=== PATIENT | male | born 1950 | race Caucasian/White ===

== ENCOUNTER 2021-08-28 09:56 | Inpatient (IN) ==
[2021-08-28 10:02] VITALS: BMI 30.7
--- NOTE | 2021-08-28 10:06 | DR.SOBA ---
HPI Time Seen Time Seen by Provider: 08/28/21 10:06 Primary Care Physician Primary Care Physician: ZAK TYLER HPI Comment HPI Comment: PATIENT IS 70YR OLD MALE IN ER WITH INCREASING SOB AND INCREASING WEAKNESS TIMES 2 WEEKS. TESTED NEGATIVE FOR COVID 19 VIRUS TIMES 3. TAKEN ANTIBIOTIC TREATED WITH STERIOD WITHOUT IMPROVEMENT. DENEIS FEVER. Complaints Chief Complaint Doctors Comments: INCREASING SOB AND WEAKNESS TIMES 2 WEEKS. Chief Complaint:: PT C/O SOB & GENERALIZED WEAKNESS X2 WEEKS. PT STATES HE HAS BEEN GOING TO PMD FOR SAME S/S GIVEN ANTIBIOTICS, STEROIDS, HAVE TESTED NEGATIVE X3 FOR COVID BUT STILL NO BETTER. COVID-19 Coronavirus risk:travel/contact w/high risk person: No Has patient experienced Coronavirus symptoms: Yes Coronavirus symptoms experienced: Shortness of Breath Reviewed Nurses Notes Reviewed: Yes Source History Provided: Patient Mode of Arrival Mode of Arrival: Ambulatory Timing Onset of Chief Complaint: 08/14/21 Duration Duration: Weeks Context Onset:: At Rest PE Risk Factors:: None History of:: None Currently on:: Neither Prehospital Care:: None Modifying Factors Worsens:: Exertion Improves:: Rest and Sitting Up Associated Signs and Symptoms Associated Signs and Symptoms: Cough and Chest Pain (PLEURITIC.) If Chest Pain Quality: Pleuritic Location: Substernal If Cough Cough: Nonproductive PMH PMH Past Medical History: No Past Surgical History: Yes Surgical History: Other Family History History of Family Medical Conditions: Yes Family Medical History: VA and Coronary Artery Disease Travel Risk Coronavirus risk:travel/contact w/high risk person: No Has patient experienced Coronavirus symptoms: Yes Coronavirus symptoms experienced: Shortness of Breath Infectious screening Have you traveled outside the country in the last 6 months?: No Isolation: Droplet ROS Review of Systems Constitutional: See HPI, Weakness and Fatigue; negative Fever Eyes: No Symptoms Reported and See HPI ENTM: See HPI, Nose Discharge and Nose Congestion Respiratoy: See HPI, Non-Productive Cough and Short of Breath; negative Wheezing Cardiovascular: No Symptoms Reported, See HPI and Chest Pain (PLEURITIS CHEST PAIN.) Gastrointestinal/Abdominal: No Symptoms Reported and See HPI; negative Abdominal Pain, Diarrhea and Vomiting Genitourinary: No Symptoms Reported and See HPI; negative Dysuria Neurological: See HPI, Headache and Weakness; negative Dizziness Musculoskeletal: See HPI and Back Pain; negative Muscle Pain Integumentary: No Symptoms Reported and See HPI; negative Rash and Juandice Hematologic/Lymphatic: No Symptoms Reported and See HPI; negative Easy Bruising Endocrine: No Symptoms Reported and See HPI; negative Increased Thirst and Increased Urine Psychiatric: No Symptoms Reported and See HPI All Other Systems: Reviewed and Negative PE Vital Signs Vitals: Temperature 98.0 F Pulse Rate 65 Respiratory Rate 17 Blood Pressure [Left Arm] 121/62 Blood Pressure 134/78 O2 Sat by Pulse Oximetry 96 General Limitations: No Limitations General Appearance: Alert and In Distress Head Head Exam: Normal Inspection Eyes Eye exam: Normal Appearance; negative Scleral Icterus and Conjunctival Injection ENT ENT Exam: Normal Exam, Normal Oropharynx, Normal External Ear Exam and TM's N ormal Bilaterally Neck Neck Exam: Normal Inspection and Trachea Midline; negative Tenderness Chest Chest Inspection: Normal Inspection and Symmetric Chest Wall Rise; negative Tenderness Respiratory Respiratory Exam: Normal Lung Sounds Bilat; negative Accessory Muscle Use, Chest Wall Tenderness and Respiratory Distress Respiratory Exam: Bilateral: Rhonchi and Lower: Rhonchi Cardiovascular Cardiovascular Exam: Regular Rate, Normal Rhythm and Normal Heart Sounds; negative Systolic Murmur and Diastolic Murmur Abdominal Exam Abdominal Exam: Normal Inspection, Normal Bowel Sounds and Soft; negative Tenderness Extremities Extremities Exam: Normal Inspection and Normal Capillary Refill Back Back Exam: Normal Inspection; negative (R) CVA Tenderness and (L) CVA Tenderness Neurologic Neurological Exam: Alert and Oriented X3; negative Motor Sensory Deficit Psychiatric Psychiatric Exam: Normal Affect and Normal Mood Skin Skin Exam: Warm, Dry, Intact and Normal Color MDM Differential Diagnosis Differential Diagnosis: Bronchitis, Mycardial Infarction, Pneumonia, Pneumothorax, Respiratory Insufficiency, Sinusitis and URI COURSE Treatment Treatment: SEE ORDERS. Education/Counseling Education/Counseling: Patient Educated On: Diagnosis and Needs for Follow Up ROR Labs Reviewed Laboratory Results Reviewed?: Yes Result Diagrams: 08/30/21 04:14 08/30/21 04:14 Laboratory: WBC 7.2 X10^3/uL (3.6-10.0) 08/28/21 10:32 RBC 5.08 X10^6/uL (4.7-6.0) 08/28/21 10:32 Hgb 14.6 g/dL (13.5-18.0) 08/28/21 10:32 Hct 42.4 % (42.0-54.0) 08/28/21 10:32 MCV 83.6 fL (80.0-100.0) 08/28/21 10:32 MCH 28.9 pg (27.0-34.0) 08/28/21 10:32 MCHC 34.5 g/dL (33.0-35.0) 08/28/21 10:32 RDW 13.7 % (11.6-16.5) 08/28/21 10:32 Plt Count 311 X10^3/uL (150.0-450.0) 08/28/21 10:32 MPV 6.4 fL (7.4-11.0) L 08/28/21 10:32 Neut % (Auto) 73.2 % (42.0-75.0) 08/28/21 10:32 Lymph % (Auto) 14.5 % (21.0-51.0) L 08/28/21 10:32 [place] % (Auto) 10.7 % (0.0-13.0) 08/28/21 10:32 Eos % (Auto) 1.2 % (0.9-2.9) 08/28/21 10:32 Baso % (Auto) 0.4 % (0.2-1.0) 08/28/21 10:32 Neut # (Auto) 5.3 x10^3/uL (2.2-4.8) H 08/28/21 10:32 Lymph # (Auto) 1.0 X10^3/uL (1.3-2.9) L 08/28/21 10:32 [place] # (Auto) 0.8 x10^3/uL (0.3-0.8) 08/28/21 10:32 Eos # (Auto) 0.1 x10^3/uL (0.0-0.2) 08/28/21 10:32 Baso # (Auto) 0.0 X10^3/uL (0.0-0.1) 08/28/21 10:32 Absolute Nucleated RBC 0.1 /100WBC 08/28/21 10:32 D-Dimer 1.08 ug/ml (0.0-0.57) H* 08/28/21 10:32 Sample Site Rbra 08/28/21 10:07 ABG pH 7.490 (7.35-7.45) H 08/28/21 10:07 ABG pCO2 28.0 mmHg (35.0-45.0) L 08/28/21 10:07 ABG pO2 56.0 mmHg (80.0-100.0) L 08/28/21 10:07 ABG HCO3 21.3 mmol/L (22-26) L 08/28/21 10:07 ABG O2 Saturation 91.0 % (90-100) 08/28/21 10:07 ABG Base Excess -1.0 mmol/L (-2.0-2.0) 08/28/21 10:07 Clem Test N/a 08/28/21 10:07 A-a Gradient 59.0 mmHg 08/28/21 10:07 FiO2 21.0 08/28/21 10:07 Blood Gas Comments Pt [facility]in well elj 08/28/21 10:07 Sodium 134 mmol/L (136-145) L 08/28/21 10:32 Corrected Sodium TNP 08/28/21 10:32 Potassium 3.8 mmol/L (3.5-5.1) 08/28/21 10:32 Chloride 99 mmol/L (98-107) 08/28/21 10:32 Carbon Dioxide 21.5 mmol/L (21-32) 08/28/21 10:32 BUN 20 mg/dL (7-18) H 08/28/21 10:32 Creatinine 1.14 mg/dL (0.70-1.30) 08/28/21 10:32 Est GFR (MDRD) Af Amer > 60 (>60) 08/28/21 10:32 Est GFR (MDRD) Non-Af > 60 (>60) 08/28/21 10:32 Glucose 101 mg/dL (65-99) H 08/28/21 10:32 Calcium 9.3 mg/dL (8.5-10.1) 08/28/21 10:32 Creatine Kinase 76 Units/L (39-308) 08/28/21 10:32 CK-MB (CK-2) 1.0 ng/mL (0-4.0) 08/28/21 10:32 CK/CKMB % Calc 1.3 % (<4) 08/28/21 10:32 Troponin I High Sens 10.4 ng/L (4.0-60.0) 08/28/21 10:32 B-Natriuretic Peptide 26.3 pg/mL (0-79) 08/28/21 10:32 Influenza Type A Ag Negative-presumptive (NEGATIVE) 08/28/21 12:08 Influenza Type B Ag Negative-presumptive (NEGATIVE) 08/28/21 12:08 SARS CoV-2 RNA Rapid LEAH Positive (NEGATIVE) A 08/28/21 12:08 XRAY XRAY Interpreted by: Radiologist (REPORT NOTED AND DISCUSSED WITH PATIENT..) and Self EKG Rate: 83 [place]: LAD Rhythm: NSR Block: None Hypertrophy: None ST: Old, Ant and Infarct Opioid Opioid Risk Tool Age (Jose box if 16-45): No History of Preadolescent Sexual Abuse: No Total: 0 Total Score Risk Category: Low Risk Copyright: Pravin CLAYTON predicting aberrant behaviors Diagnosis Discharge Problem: COVID-19 virus infection, Respiratory distress Pneumonia Qualifiers: Pneumonia type: due to unspecified organism Laterality: bilateral Lung location: lower lobe of lung Qualified Code(s): J18.9 - Pneumonia, unspecified organism Instructions Instructions: How to Use an Incentive Spirometer Hypoxia Prone Position Therapy How to Wear and Take Off Your Mask - [facility] (10/27/2020) 10 Things You Can Do to Manage Your COVID-19 Symptoms at Home - [facility] (01/27/2020) Shortness of Breath, Adult COVID-19 How to Use a Nebulizer, Adult COVID-19: Quarantine vs. Isolation - [facility] (07/14/2020) You've Been Prescribed an Antibiotic in the Hospital for an Infection - [facility] Managing Your Hypertension Forms: Excuse From Work or School Precautions for COVID19 [facility] Social Distancing
[2021-08-28 10:13] LABS: ABG HCO3 21.3 mmol/L (22-26)
--- NOTE | 2021-08-28 10:38 | RAD ---
HISTORYPT C/O SOB & GENERALIZED WEAKNESS X2 WEEKS. PT STATES HE HAS BEEN GOING TO PMD FOR SAME S/S GIVEN ANTIBIOTICS, STEROIDS, HAVE TESTED NEGATIVE X3 FOR COVID BUT STILL NO BETTER.STUDYCHEST, 1 [id number]/27/2022.TECHNIQUEAP view of the chestFINDINGSCardiac and mediastinal contours are within normal limits. Interval development of bilateral mid to lower lung hazy and interstitial pulmonary opacities. No definite pleural effusion or pneumothorax.IMPRESSIONBilateral hazy and interstitial pulmonary opacities in the mid to lower lungs appear worse than prior and may represent atypical pneumonia. Recommend follow-up to document resolution.Electronically signed by: Ariel Hoffman (Aug 28, 2021 10:36:38)
[2021-08-28] MEDS ORDERED: SOLU-Medrol 125 MG VIAL IVP ONE (10:41)
[2021-08-28 10:48] LABS: BASOPHILS % (AUTO) 0.4 % (0.2-1.0); EOSINOPHILS # (AUTO) 0.1 x10^3/uL (0.0-0.2); EOSINOPHILS % (AUTO) 1.2 % (0.9-2.9); HEMATOCRIT 42.4 % (42.0-54.0); HEMOGLOBIN 14.6 g/dL (13.5-18.0); LYMPHOCYTES % (AUTO) 14.5 % (21.0-51.0); MEAN CORPUSCULAR HEMOGLOBIN 28.9 pg (27.0-34.0); MEAN CORPUSCULAR HGB CONC 34.5 g/dL (33.0-35.0); MEAN CORPUSCULAR VOLUME 83.6 fL (80.0-100.0); MEAN PLATELET VOLUME 6.4 fL (7.4-11.0); MONOCYTES # (AUTO) 0.8 x10^3/uL (0.3-0.8); MONOCYTES % (AUTO) 10.7 % (0.0-13.0); NEUTROPHILS # (AUTO) 5.3 x10^3/uL (2.2-4.8); NEUTROPHILS % (AUTO) 73.2 % (42.0-75.0); RED BLOOD COUNT 5.08 X10^6/uL (4.7-6.0); RED CELL DISTRIBUTION WIDTH 13.7 % (11.6-16.5); WHITE BLOOD COUNT 7.2 X10^3/uL (3.6-10.0)
[2021-08-28] MEDS ORDERED: SOLU-Medrol 125 MG VIAL ONE (10:51)
[2021-08-28 11:09] LABS: BLOOD UREA NITROGEN 20 mg/dL (7-18); CALCIUM 9.3 mg/dL (8.5-10.1); CARBON DIOXIDE 21.5 mmol/L (21-32); CHLORIDE 99 mmol/L (98-107); CREATININE 1.14 mg/dL (0.70-1.30); SODIUM 134 mmol/L (136-145); eGFR NON BLACK RACES > 60 (>60)
[2021-08-28 11:27] LABS: CKMB % 1.3 % (<4); CREATINE KINASE 76 Units/L (39-308)
[2021-08-28] MEDS ORDERED: NS 1,000 ML IV 1,000 ML ONE (12:06)
[2021-08-28] MEDS ORDERED: ZOSYN VIAL 3.375 GRAMS 3.375 G in NS 100 ML IV + SPIKE MINIBAG* 100 ML IV ONE (12:20)
[2021-08-28] MEDS ORDERED: ZOSYN VIAL 3.375 GRAMS IV ONE (12:39)
[2021-08-28] MEDS ORDERED: NS 100 ML IV + SPIKE MINIBAG* 100 ML IV ONE (12:40)
[2021-08-28] MEDS ORDERED: NS 1,000 ML IV 1,000 ML IV SCH (13:00)
[2021-08-28] MEDS ORDERED: REMDESIVIR 200 MG in NS 250 ML IV 250 ML IV ONE (17:14)
[2021-08-28] MEDS: PULMICORT NEB TX 0.5 MG NEB SCH (20:50)
[2021-08-28] MEDS: BROVANA IN SCH (20:50)
[2021-08-28] MEDS ORDERED: ASCORBIC ACID INJ MULTI-DOSE VIAL 1,500 MG in NS 100 ML IV 100 ML IV SCH (21:00)
[2021-08-28] MEDS ORDERED: LOVENOX INJ 30 MG SYR SC SCH (21:00)
[2021-08-28] MEDS: ASCORBIC ACID INJ MULTI-DOSE VIAL 1,500 MG in NS 50 ML IV 50 ML IV SCH (21:15)
[2021-08-28] MEDS: ZOSYN VIAL 3.375 GRAMS 3.375 G in NS 100 ML IV + SPIKE MINIBAG* 100 ML IV SCH (21:15)
[2021-08-28] MEDS: PEPCID TAB 40 MG PO SCH (21:15)
[2021-08-28] MEDS: VIBRAMYCIN PO SCH (21:15)
[2021-08-28] MEDS: ZINC SULFATE PO SCH (21:15)
[2021-08-28] MEDS: SOLU-Medrol 40 MG VIAL IVP SCH (21:15)
[2021-08-28] MEDS: LOVENOX INJ 80 MG SYR SC SCH (22:05)
[2021-08-28] MEDS: NS 1,000 ML IV 1,000 ML IV SCH (22:05)
[2021-08-29] MEDS: ASCORBIC ACID INJ MULTI-DOSE VIAL 1,500 MG in NS 50 ML IV 50 ML IV SCH ×2 (03:55→08:00)
[2021-08-29] MEDS: SOLU-Medrol 40 MG VIAL IVP SCH ×3 (05:18→21:02)
[2021-08-29] MEDS: ZOSYN VIAL 3.375 GRAMS 3.375 G in NS 100 ML IV + SPIKE MINIBAG* 100 ML IV SCH (05:18)
[2021-08-29 05:34] LABS: ABG ALLEN TEST POSS; ABG BASE EXCESS -3.5 mmol/L (-2.0-2.0); ABG HCO3 20.3 mmol/L (22-26)
[2021-08-29 06:11] LABS: BASOPHILS % (AUTO) 0.2 % (0.2-1.0); EOSINOPHILS % (AUTO) 0.1 % (0.9-2.9); HEMATOCRIT 39.8 % (42.0-54.0); HEMOGLOBIN 13.7 g/dL (13.5-18.0); LYMPHOCYTES # (AUTO) 0.9 X10^3/uL (1.3-2.9); LYMPHOCYTES % (AUTO) 11.3 % (21.0-51.0); MEAN CORPUSCULAR HEMOGLOBIN 29.1 pg (27.0-34.0); MEAN CORPUSCULAR HGB CONC 34.3 g/dL (33.0-35.0); MEAN CORPUSCULAR VOLUME 84.6 fL (80.0-100.0); MEAN PLATELET VOLUME 6.6 fL (7.4-11.0); MONOCYTES # (AUTO) 0.4 x10^3/uL (0.3-0.8); MONOCYTES % (AUTO) 5.3 % (0.0-13.0); NEUTROPHILS # (AUTO) 6.5 x10^3/uL (2.2-4.8); NEUTROPHILS % (AUTO) 83.1 % (42.0-75.0); RED CELL DISTRIBUTION WIDTH 13.6 % (11.6-16.5); WHITE BLOOD COUNT 7.8 X10^3/uL (3.6-10.0)
--- NOTE | 2021-08-29 06:17 | RAD ---
HISTORYSOBSTUDYCHEST, 1 VIEWCOMPARISONOne day prior.TECHNIQUEAP view of the chestFINDINGSCardiac and mediastinal contours are within normal limits. Similar appearance of bilateral mid to lower lung hazy and interstitial pulmonary opacities. No definite pleural effusion or pneumothorax.IMPRESSIONNo significant change.Electronically signed by: Ariel Hoffman (Aug 29, 2021 06:16:02)
[2021-08-29 06:18] LABS: BLOOD UREA NITROGEN 19 mg/dL (7-18); CALCIUM 8.8 mg/dL (8.5-10.1); CARBON DIOXIDE 24.3 mmol/L (21-32); CHLORIDE 107 mmol/L (98-107); COR NA(FOR HYPERGLY) 143 mmol/L (136-145); CREATININE 1.09 mg/dL (0.70-1.30); SODIUM 141 mmol/L (136-145); eGFR NON BLACK RACES > 60 (>60)
[2021-08-29] MEDS ORDERED: LEVAQUIN PREMIX IV 500 MG 500 MG/100 ML BAG IV SCH (09:00)
[2021-08-29] MEDS ORDERED: PHARMACY CONSULT - IVERMECTIN XX SCH (09:00)
[2021-08-29] MEDS ORDERED: REMDESIVIR 100 MG in NS 100 ML IV + SPIKE MINIBAG* 120 ML IV SCH (09:00)
[2021-08-29] MEDS ORDERED: VITAMIN D (1.25MG) PO SCH (09:00)
[2021-08-29] MEDS: VITAMIN C PO SCH ×3 (09:00→20:57)
[2021-08-29] MEDS: REMDESIVIR 200 MG in NS 250 ML IV 250 ML IV SCH (09:00)
[2021-08-29] MEDS ORDERED: TRICOR TAB 160 MG PO SCH (09:00)
[2021-08-29] MEDS ORDERED: REMDESIVIR 100 MG in NS 250 ML IV 250 ML IV ONE (09:15)
[2021-08-29] MEDS: PEPCID TAB 40 MG PO SCH ×2 (09:20→20:57)
[2021-08-29] MEDS: LOVENOX INJ 80 MG SYR SC SCH ×2 (09:20→20:56)
[2021-08-29] MEDS: ZINC SULFATE PO SCH ×2 (09:21→20:57)
[2021-08-29] MEDS: VIBRAMYCIN PO SCH ×2 (09:21→20:57)
[2021-08-29] MEDS: LUVOX PO SCH ×2 (09:33→20:57)
--- NOTE | 2021-08-29 09:42 | DR.H&P ---
H&P - History & Physical for Day of: H&P Date: 08/28/21 - Chief Complaint Chief Complaint: SOB, COUGH, FATIGUE, DECREASED APPETITE, GENERALIZED WEAKNESS - History of Present Illness History of Present Illness: IS A 70 YEAR OLD PATIENT OF [employer] ALEX. HE PRESENTED TO THE ER WITH COMPLAINTS OF SHORTNESS OF BREATH, NON-PRODUCTIVE COUGH, FATIGUE, DECREASED APPETITE, AND GENERALIZED WEAKNESS X 2 WEEKS. HE HAS BEEN TREATED BY HIS PCP WITH NEBULIZER TREATMENTS, LEVAQUIN 500MG DAILY, A Z- PACK, TESSALON PERLES, AND A MEDROL DOSE PACK. HE DENIES IMPROVEMENT IN SYMPTOMS DESPITE COMPLIANCE WITH MEDICATIONS. HE REPORTS TESTING NEGATIVE FOR COVID-19 IN THE OFFICE. HIS OXYGEN SATURATIONS AT HOME HAVE REPORTEDLY BEEN 88-90%. HIS PMH INCLUDES: CO, HYPERLIPIDEMIA, HTN, CARDIAC STENTS X 8. ON ARRIVAL TO THE ER, HIS VITALS WERE: 97.9-100-17-90%-104/63. LABS WERE OBTAINED. WBC 7.2, HGB 14.6, HCT 42.4, D-DIMER 1.08, SODIUM 134, POTASSIUM 3.8, BUN 20, CREATININE 1.14, GLUCOSE 101, BNP 26.3. CARDIAC ENZYMES WITHIN NORMAL LIMITS. INFLUENZA NEGATIVE. COVID- 19 POSITIVE. ABG OBTAINED AND REVEALED: PH 7.490, PC02 28, P02 56, HC03 21.3, 02 SAT 91, A-A GRADIENT 592, FI02 21.0. A CHEST XRAY WAS OBTAINED AND REVEALED: Bilateral hazy and interstitial pulmonary opacities in the mid to lower lungs appear worse than prior and may represent atypical pneumonia. Recommend follow- up to document resolution. EKG OBTAINED AND REVEALED: SINUS RHYTHM WITH HR 83. IN THE ER, HE WAS GIVEN SOLU-MEDROL 125MG IV X 1, ZOSYN 3.375G IV X 1, REMDESIVIR 200MG IV X 1, ASCORBIC ACID 1500MG IV X 1. HE WAS ADMITTED TO THE HOSPITAL FOR FURTHER EVALUATION AND TREATMENT OF PNEUMONIA DUE TO COVID-19 AND HYPOXIA. HE WAS STARTED ON NORMAL SALINE AT 75 ML/HR, REMDESIVIR 100MG IV DAILY, SOLU-MEDROL 80MG IV Q8H, DUONEBS TID, PULMICORT NEBS BID, BROVANA BID, VITAMIN C 1G PO Q6H, DOXYCYCLINE 100MG PO BID, LOVENOX 80MG SC BID, VITAMIN D DAILY, PEPCID 40MG PO BID, TRICOR 160MG PO DAILY, LUVOX 50MG PO BID, IVERMECTIN DAILY, VITAMIN A DAILY, AND ZINC 220MG PO BID. OTHERWISE, WE PLAN TO FOLLOW UP WITH AM LABS AND CHEST XRAY AND CONTINUE TO MONITOR. TIME SPENT ON CLINICAL ASSESSMENT, REVIEWING LABS AND IMAGING, DECISION MAKING, AND DOCUMENTATION WAS GREATER THAN 75 MINUTES. - Past Medical History Past Medical History: Dyslipidemia, Hypertension, CO - Past Surgical History Surgical History: Angioplasty/Stents - Family History Family Medical History: CO, Coronary Artery Disease - Social History Does patient currently use any type of tobacco product: No Have you used tobacco products in the last 12 months: No Type of Tobacco Use: None Does any household member use tobacco: No Alcohol Use: None Drug Use: None - Medications Home Medications: iodine Allergy (Verified 04/08/21 16:26) Rdszuou-UGW-WgT Reductase Inhibitor [Zmedylz-Yjl-Nua Reductase Inhibitor] Allergy (Verified 04/08/21 16:26) vancomycin Allergy (Verified 04/08/21 16:26) CONTINUE taking the following medications lisinopril 10 mg PO QAM 08/28/21 [History] metoprolol tartrate 50 mg PO BIDWMEAL 08/28/21 [History] pravastatin 40 mg PO QHS 08/28/21 [History] aspirin [Baby Aspirin] 81 mg PO QHS 08/29/21 [History] clopidogrel 75 mg PO QAM 08/29/21 [History] ergocalciferol (vitamin D2) 1,250 mcg PO WEEKLY 08/29/21 [History] fenofibrate 160 mg PO QHS 08/29/21 [History] tamsulosin 0.4 mg PO QAM 08/29/21 [History] - Review of Systems Constitutional: Weakness Eyes: No Symptoms Reported ENT: No Symptoms Reported Respiratory: Cough, Shortness of Breath Cardiovascular: No Symptoms Reported Gastrointestinal: No Symptoms Reported Genitourinary: No Symptoms Reported Musculoskeletal: No Symptoms Reported Skin: No Symptoms Reported Neurological: Weakness - Physical Exam Vital Signs: Temperature 97.5 F Pulse Rate [Apical] 82 Pulse Rate 71 Respiratory Rate 20 Blood Pressure [Left Arm] 131/71 Blood Pressure 134/78 O2 Sat by Pulse Oximetry 97 Oriented: Normal Eyes: Normal Ear: Normal Nose: Normal Throat: Normal Respiratory: Diminished Throughout, Rhonchi Throughout Cardiovascular: Normal : Normal Auscultation: Bowel Sounds: Normal Palpation: Normal Tenderness: Normal Skin: Normal Musculoskeletal: Normal Psychiatric: Normal Mood Description: Calm Affect: Normal Speech Pattern: Clear - Assessment/Plan (1) Pneumonia due to COVID-19 virus Status: Acute Plan: ADMIT, SUPPLEMENTAL OXYGEN, IV FLUIDS, IV ANTIBITOTICS, NEB [place], IV REMDESIVIR, IV STEROIDS, IMMUNE SUPPLEMENTS, RESUME HOME MEDS (2) Hypoxia Status: Acute - Allergies Allergies/Adverse Reactions: Allergies Allergy/AdvReac Type Severity Reaction Status Date / Time iodine Allergy Verified 04/08/21 16:26 Mgpkonp-WDS-VmN Reductase Allergy Verified 04/08/21 16:26 Inhibitor [Zagvdcp-Smv-Kww Reductase Inhibitor] vancomycin Allergy Verified 04/08/21 16:26
[2021-08-29] MEDS: DUONEB 0.5 MG/3 MG (3 mL) NEB SCH ×3 (09:52→21:18)
[2021-08-29] MEDS: BROVANA IN SCH ×2 (09:52→21:18)
[2021-08-29] MEDS: PULMICORT NEB TX 0.5 MG NEB SCH ×2 (09:52→21:18)
[2021-08-29] MEDS: IVERMECTIN PO SCH (10:57)
[2021-08-29] MEDS ORDERED: ASPIRIN 81 MG CHEWTAB PO SCH ×2 (15:00→21:00)
[2021-08-29] MEDS: LOPRESSOR TAB 50 MG PO SCH (16:26)
[2021-08-29] MEDS: NS 1,000 ML IV 1,000 ML IV SCH (20:55)
[2021-08-29] MEDS ORDERED: PRAVACHOL PO SCH (21:00)
[2021-08-30] MEDS: VITAMIN C PO SCH ×2 (02:45→08:21)
[2021-08-30] MEDS: SOLU-Medrol 40 MG VIAL IVP SCH (05:30)
[2021-08-30] MEDS: LOPRESSOR TAB 50 MG PO SCH (05:30)
[2021-08-30 05:37] LABS: BASOPHILS % (AUTO) 0.1 % (0.2-1.0); HEMATOCRIT 33.7 % (42.0-54.0); LYMPHOCYTES # (AUTO) 0.8 X10^3/uL (1.3-2.9); LYMPHOCYTES % (AUTO) 6.1 % (21.0-51.0); MEAN CORPUSCULAR HEMOGLOBIN 28.7 pg (27.0-34.0); MEAN CORPUSCULAR HGB CONC 34.5 g/dL (33.0-35.0); MEAN CORPUSCULAR VOLUME 83.4 fL (80.0-100.0); MONOCYTES # (AUTO) 0.9 x10^3/uL (0.3-0.8); MONOCYTES % (AUTO) 7.2 % (0.0-13.0); NEUTROPHILS # (AUTO) 10.7 x10^3/uL (2.2-4.8); NEUTROPHILS % (AUTO) 86.6 % (42.0-75.0); RED BLOOD COUNT 4.04 X10^6/uL (4.7-6.0); RED CELL DISTRIBUTION WIDTH 13.8 % (11.6-16.5); WHITE BLOOD COUNT 12.3 X10^3/uL (3.6-10.0)
[2021-08-30 05:38] LABS: ALANINE AMINOTRANSFERASE 20 Units/L (12-78); ALBUMIN 2.2 g/dL (3.4-5.0); ALKALINE PHOSPHATASE 33 Units/L (46-116); ASPARTATE AMINO TRANSFERASE 18 Units/L (15-37); BLOOD UREA NITROGEN 21 mg/dL (7-18); CALCIUM 7.7 mg/dL (8.5-10.1); CARBON DIOXIDE 21.9 mmol/L (21-32); CHLORIDE 114 mmol/L (98-107); COR CA(FOR HYPOALB) 9.1 mg/dL (8.5-10.1); COR NA(FOR HYPERGLY) 146 mmol/L (136-145); CREATININE 1.06 mg/dL (0.70-1.30); SODIUM 145 mmol/L (136-145); TOTAL PROTEIN 5.5 g/dL (6.4-8.2); eGFR NON BLACK RACES > 60 (>60)
[2021-08-30 05:46] LABS: HEMOGLOBIN 11.6 g/dL (13.5-18.0)
--- NOTE | 2021-08-30 06:04 | RAD ---
HISTORYSOBSTUDYCHEST, 1 VIEWCOMPARISONOne day prior.TECHNIQUEAP view of the chestFINDINGSCardiac and mediastinal contours are within normal limits. No significant change in mid to lower lung airspace and interstitial opacities. No definite pleural effusion or pneumothorax.IMPRESSIONNo significant change.Electronically signed by: Ariel Hoffman (Aug 30, 2021 06:03:20)
[2021-08-30] MEDS: DUONEB 0.5 MG/3 MG (3 mL) NEB SCH (06:11)
[2021-08-30] MEDS: ZINC SULFATE PO SCH (08:18)
[2021-08-30] MEDS: IVERMECTIN PO SCH (08:18)
[2021-08-30] MEDS: LOVENOX INJ 80 MG SYR SC SCH (08:18)
[2021-08-30] MEDS: LUVOX PO SCH (08:19)
[2021-08-30] MEDS: PEPCID TAB 40 MG PO SCH (08:19)
[2021-08-30] MEDS: REMDESIVIR 200 MG in NS 250 ML IV 250 ML IV SCH (08:19)
[2021-08-30] MEDS: VIBRAMYCIN PO SCH (08:20)
[2021-08-30] MEDS: BROVANA IN SCH (08:39)
[2021-08-30] MEDS: PULMICORT NEB TX 0.5 MG NEB SCH (08:39)
[2021-08-30] MEDS ORDERED: REMDESIVIR 100 MG in NS 250 ML IV 250 ML IV ONE (08:49)
[2021-08-30] MEDS ORDERED: VITAMIN D3 125 mcg (5,000 UNITS) PO SCH (09:00)
[2021-08-30] MEDS ORDERED: VITAMIN A PO SCH (09:00)
[2021-08-30] MEDS ORDERED: FLOMAX PO SCH (09:00)
[2021-08-30] MEDS ORDERED: ZESTRIL TAB 10 MG PO SCH (09:00)
[2021-08-30 10:28] VITALS: BP 111/60
[2021-08-30] MEDS ORDERED: TRICOR TAB 160 MG PO SCH (21:00)
== END 2021-08-30 11:30 | disposition home or self-care (01) | DRG 177 ==
LOC: ER 09:56 → MED/SURG 15:05
PROVIDERS: ADMIT Internal Medicine; ATTEND Internal Medicine